=== PATIENT | female | born 1955 | race Caucasian/White ===

== ENCOUNTER → 2019-11-13 | Outpatient (CLI) | payer MEDICARE ==
[2015-08-07 12:41] VITALS: BP 133/73
[~2019-11-13] MED LIST: ESOM40CA PO; IBUP-1027 PO; LORA2VIA4 PO; MEPE50TA PO; POLY119P4 PO; RANI300T3 PO
--- NOTE | 2019-11-13 12:47 | KCIC ---
EXAM: Dual energy x-ray absorptiometry (DEXA). HISTORY: Post menopausal female presents for osteoporosis screening. Stress fracture. COMPARISON: None. TECHNIQUE: Dual energy x-ray absorptiometry of the lumbar spine and left hip was performed. Calculation of bone mineral density based on standard deviations above or below the expected young adult normal value (T-score) was completed. FINDINGS: The average bone mineral density in the 1st through 4th lumbar vertebrae is 1.133 g/cmxcm, corresponding with a T-score of 0.8. The average total bone mineral density in the left hip is 0.796 g/cmxcm, corresponding with a T-score of -1.2. IMPRESSION: 1. Osteopenia measured at the left hip. 2. Normal bone mineral density measured at the lumbar spine. Note: Definitions established by the [employer] Organization: 1. Normal: T-score is -1.0 or above. 2. Osteopenia: T-score is between -1.0 and -2.5 . 3. Osteoporosis: T-score is -2.5 or below. Electronically signed by: Justina Hernández MD (11/13/2019 12:44 PM) [id number]
== END ==
LOC: KCIC DEXA 12:11
PROVIDERS: ATTEND Family Medicine
DX: M84.374A Stress fracture, right foot, initial encounter for fracture (principal); M85.88 Other specified disorders of bone density and structure, other site; X58.XXXA Exposure to other specified factors, initial encounter; Y93.89 Activity, other specified; Y92.89 Other specified places as the place of occurrence of the external cause; Y99.8 Other external cause status
CPT/HCPCS: 77080

== ENCOUNTER → 2020-01-04 | Outpatient (CLI) | payer MEDICARE ==
[2015-08-07 12:41] VITALS: BP 133/73
[~2020-01-04] MED LIST changes: +[UNRECOGNIZED DRUG - CODE] PO
== END | disposition home or self-care (01) ==
LOC: LAB 10:18
PROVIDERS: ATTEND Surgery
DX: Z01.818 Encounter for other preprocedural examination (principal); Z20.828 Contact with and (suspected) exposure to other viral communicable diseases; K31.1 Adult hypertrophic pyloric stenosis
CPT/HCPCS: 36415; 87635

== ENCOUNTER → 2021-02-20 | Outpatient (CLI) | payer MEDICARE ==
[2020-01-12 07:59] VITALS: BP 173/96
--- NOTE | 2021-02-20 14:01 | RAD ---
NM PET/CT SKULL BASE TO MID THIGH Clinical Indication: Lung nodule Comparison: None. Technique: Patient blood glucose at the time of injection is 112 mg/dL. The patient was administered 14.8 mCi of F-18 FDG intravenously. The patient rested quietly during a 60 minute uptake period. Then PET imaging from the skull base to the upper thighs was performed. A noncontrast CT was acquired ove r this same area. The CT is for attenuation correction and anatomic localization, it is not of diagno stic quality and is not intended to diagnose disease independently of the PET. PQRS Compliance Statement: One or more of the following individualized dose reduction techniques were utilized for this examinat ion: 1. Automated exposure control 2. Adjustment of the mA and/or kV according to patient size 3. Use of iterative reconstruction technique Findings: Background: Mediastinal SUV max: 2.3 Liver SUV max: 2.89 Head and neck: There is no evidence of FDG-avid disease. Chest: Bilateral breast implants. Coronary artery calcifications. Atheromatous plaque within the aorta. No p athologic lymphadenopathy. No consolidation or pleural effusion. No pneumothorax. Scattered linear at electasis. Mild emphysema. Right lower lobe posterior pleural-based 9 x 7 mm pulmonary nodule (series 3 image 156). SUV Max 1.53 . Abdomen and pelvis: There is no evidence of FDG-avid disease. The liver, spleen, adrenal glands, and pancreas are unremar kable. Prior cholecystectomy. Left renal cyst measures 2.3 cm. Decompressed urinary bladder. Prior appendectomy. No evidence of bowel obstruction. Anterior abdominal wall hernia containing porti on of the transverse colon. No pathologic lymphadenopathy. No ascites. Musculoskeletal: There is no evidence of FDG-avid disease. Multilevel cervical spondylosis. Postoperative changes cerv ical spine. Postop changes right proximal femur. IMPRESSION: 1. Small right lower lobe posterior pleural-based nodule with low level metabolic activity. Finding may represent benign etiology although given the size of the nodule is borderline for PET evaluation conservatively recommend 3 month follow-up CT. Comparison with prior imaging studies would also be of benefit to evaluate interval change. Electronically signed by: Speedy Daugherty DO (02/20/2021 1:58 PM) [id number]
== END ==
LOC: PETSC 08:45
PROVIDERS: ATTEND Internal Medicine Pulmonary Disease
DX: R91.8 Other nonspecific abnormal finding of lung field (principal); I25.10 Atherosclerotic heart disease of native coronary artery without angina pectoris
CPT/HCPCS: 78815; A9552